=== PATIENT | male | born 1950 | race Caucasian/White ===

== ENCOUNTER → 2016-08-13 | Outpatient (CLI) | payer OTHER | LOC: RAD 12:37 | DX: M54.9 Dorsalgia, unspecified (principal) | CPT/HCPCS: 71020 ==

== ENCOUNTER → 2020-09-29 | Outpatient (CLI) | payer MEDICARE, OTHER ==
[~2020-09-29] MED LIST: DELSYM30 MG/5 ML PO; FLONASE 0.05% N16 GM; TAMIFLU75 MG PO
== END ==
LOC: HEART 5 09-03 14:30 → ECHO 14:00
DX: I25.10 Atherosclerotic heart disease of native coronary artery without angina pectoris (principal); I51.9 Heart disease, unspecified
CPT/HCPCS: ECHO; 93306

== ENCOUNTER 2021-09-05 13:29 | Emergency (ER) | payer MEDICARE, OTHER ==
[2021-09-05] MEDS ORDERED: CEPHALEXIN500 MG PO (16:01)
[2021-09-05] MEDS ORDERED: HYDROCODON-ACE1 EAC4 PO (16:01)
== END 2021-09-05 16:17 | disposition home or self-care (01) ==
LOC: ER1 13:29
DX: S62.631A Displaced fracture of distal phalanx of left index finger, initial encounter for closed fracture (principal); S61.211A Laceration without foreign body of left index finger without damage to nail, initial encounter; I11.0 Hypertensive heart disease with heart failure; I50.9 Heart failure, unspecified; E11.9 Type 2 diabetes mellitus without complications; I25.10 Atherosclerotic heart disease of native coronary artery without angina pectoris; Z23 Encounter for immunization; Z95.1 Presence of aortocoronary bypass graft; W31.2XXA Contact with powered woodworking and forming machines, initial encounter; Y92.009 Unspecified place in unspecified non-institutional (private) residence as the place of occurrence of the external cause
CPT/HCPCS: 12001; 73140; 90471; 99283

== ENCOUNTER → 2021-09-17 | Outpatient (CLI) | payer MEDICARE, OTHER ==
[~2021-09-17] MED LIST changes: +CEPHALEXIN500 MG PO; +HYDROCODON-ACE1 EAC4 PO
[2021-09-17 12:47] LABS: HEMOGLOBIN 16.1 gm/dl (14.0-17.5); RED BLOOD COUNT 5.39 M/UL (4.20-5.50); WHITE BLOOD COUNT 6.6 K/UL (4.5-11.0)
[2021-09-17 13:16] LABS: BUN/CREATININE RATIO 26 (0-10)
== END ==
LOC: LAB 12:29
PROVIDERS: Nurse Practitioner Family
DX: I10 Essential (primary) hypertension (principal); D51.9 Vitamin B12 deficiency anemia, unspecified; E55.9 Vitamin D deficiency, unspecified
CPT/HCPCS: 36415; 80053; 80061; 82607; 84439; 84443; 85025

== ENCOUNTER 2021-12-09 10:06 | Emergency (ER) | payer MEDICARE, OTHER | END 2021-12-09 10:50 | disposition home or self-care (01) | LOC: ER1 10:06 | DX: H65.93 Unspecified nonsuppurative otitis media, bilateral (principal); J30.2 Other seasonal allergic rhinitis; E11.9 Type 2 diabetes mellitus without complications; I11.9 Hypertensive heart disease without heart failure; Z95.1 Presence of aortocoronary bypass graft | CPT/HCPCS: 99282 ==